=== PATIENT | male | born 1930 | race Caucasian/White ===

== ENCOUNTER 2017-01-23 17:49 | Emergency (ER) | payer MEDICARE ==
--- NOTE | 2017-01-23 17:58 | Emergency Department Record ---
History of Present Illness - General Chief Complaint: Laceration(s) Stated Complaint: LAC Source: Patient - History of Present Illness Initial Commments: Family reports that their demented family member tried to crawl into a trailer [place] their property, cutting his non-dominant left hand. He needs his tetanus updated. Multiple medical problems noted but not acute. - Related Data Hx Tetanus Toxoid Vaccination: No Home Medications Medication Instructions Recorded Confirmed Last Taken Metoprolol Tartrate [Metoprolol 25 mg PO DAILY 01/25/16 01/23/17 01/23/17 Tartrate] Ramipril [Ramipril] 1 tab PO DAILY 01/25/16 01/23/17 01/23/17 Aspirin [Aspirin EC] 81 mg PO DAILY 01/23/17 01/23/17 01/23/17 Donepezil HCl [Donepezil HCl] 10 mg PO ASDIR 01/23/17 01/23/17 01/23/17 Insulin Glargine,Hum.rec.anlog 16 units SQ DAILY 01/23/17 01/23/17 01/23/17 [Lantus] Levothyroxine Sodium 50 mcg PO DAILY 01/23/17 01/23/17 01/23/17 Mirtazapine [Mirtazapine] 7.5 mg PO ASDIR 01/23/17 01/23/17 01/23/17 Previous Rx's Medication Instructions Recorded Cephalexin [Keflex] 500 mg PO QID #39 cap 01/23/17 Allergies Allergy/AdvReac Type Severity Reaction Status Date / Time No Known Drug Allergies Allergy Verified 01/23/17 17:55 Review of Systems Reviewed: No additional complaints except as noted below Constitutional: Reports: As per HPI. Denies: Chills, Fever, Malaise, Night sweats, Weakness, Weight change Eyes: Reports: As per HPI. Denies: Eye discharge, Eye pain, Photophobia, Vision change ENT: Reports: As per HPI. Denies: Congestion, Dental pain, Ear pain, Epistaxis , Hearing loss, Throat pain Respiratory: Reports: As per HPI. Denies: Cough, Dyspnea, Hemoptysis, Stridor, Wheezes Cardiovascular: Reports: As per HPI. Denies: Arrhythmia, Chest pain, Dyspnea on exertion, Edema, Murmurs, Orthopnea, Palpitations, Paroxysmal nocturnal dyspnea, Rheumatic Fever, Syncope Endocrine: Reports: As per HPI. Denies: Fatigue, Heat or cold intolerance, Polydipsia, Polyuria Gastrointestinal: Reports: As per HPI. Denies: Abdominal pain, Constipation, Diarrhea, Hematemesis, Hematochezia, Melena, Nausea, Vomiting Genitourinary: Reports: As per HPI. Denies: Dysuria, Frequency, Hematuria, Incontinence, Retention, Testicular pain, Testicular mass, Urgency Musculoskeletal: Reports: As per HPI. Denies: Arthralgia, Back pain, Gout, Joint swelling, Myalgia, Neck pain Skin: Reports: As per HPI. Denies: Bruising, Change in color, Change in hair/ nails, Lesions, Pruritus, Rash Neurological: Reports: As per HPI. Denies: Abnormal gait, Confusion, Headache, Numbness, Paresthesias, Seizure, Tingling, Tremors, Vertigo, Weakness Psychiatric: Reports: As per HPI. Denies: Anxiety, Auditory hallucinations, Depression, Homicidal thoughts, Suicidal thoughts, Visual hallucinations Hematological/Lymphatic: Reports: As per HPI. Denies: Anemia, Blood Clots, Easy bleeding, Easy bruising, Swollen glands Past Medical History - SOCIAL HISTORY Smoking Status: Former smoker - RESPIRATORY Hx Respiratory Disorders: Yes Hx COPD: Yes - CARDIOVASCULAR Hx Cardio Disorders: Yes Hx Heart Attack: Yes - NEURO Hx Neuro Disorders: No - PSYCH Hx Psych Problems: No Physical Exam - General General Appearance: Alert, Oriented x3, Cooperative, No acute distress - Head Head exam: Normal inspection - Eye Eye exam: Normal appearance, PERRL Pupils: Normal accommodation - ENT ENT exam: Normal exam, Mucous membranes moist, Normal external ear exam, Normal orophraynx, TM's normal bilaterally Ear exam: Normal external inspection. negative: External canal tenderness Nasal Exam: Normal inspection. negative: Discharge, Sinus tenderness Mouth exam: Normal external inspection, Tongue normal Teeth exam: Normal inspection. negative: Dental caries Throat exam: Normal inspection. negative: Tonsillar erythema, Tonsillar exudate - Neck Neck exam: Normal inspection, Full ROM. negative: Tenderness - Respiratory Respiratory exam: Normal lung sounds bilaterally. negative: Respiratory distress - Cardiovascular Cardiovascular Exam: Regular rate, Normal rhythm, Normal heart sounds - GI/Abdominal GI/Abdominal exam: Soft, Normal bowel sounds. negative: Tenderness - Rectal Rectal exam: Deferred - exam: Deferred - Extremities Extremities exam: Normal inspection, Full ROM, Normal capillary refill. negative: Tenderness Image of Hand: 1 - 1.5 cm lac to flexor surface of PIP 4th digit, sub Q depth, no FB, no tendon 2 - degloving of DIP pinky finger, no FB sub Q depth no tendons 3 - several other tears of skin unable to be sutured. - Back Back exam: Reports: Normal inspection, Full ROM. Denies: Muscle spasm, Rash noted, Tenderness - Neurological Neurological exam: Alert, Normal gait, Oriented X3, Reflexes normal - Psychiatric Psychiatric exam: Normal affect, Normal mood - Skin Skin exam: Dry, Intact, Normal color, Warm Course - Reevaluation(s) Reevaluation #1: PROCEEDURE: 1% lido local to 5th digit lac and to 4th digit lac, 3 cc total; sterile prep and drape, #4 5.0 prolene simple interrupteds to 5th digit; #4 of same to 4th digit ring finger. 2-3 other laces unable to be sutured. No tendons , no FB noted. 01/23/17 18:59 Medical Decision Making - Management Options MDM Management: No Additional Work-up Planned (Suture removal 12-14 days.) - Lab Data Result diagrams: 01/23/17 18:25 01/23/17 18:25 Disposition Disposition: Discharge Clinical Impression: Laceration of hand Qualifiers: Encounter type: initial encounter Foreign body presence: without foreign body Laterality: left Qualified Code(s): S61.412A - Laceration without foreign body of left hand, initial encounter Disposition: Home, Self-Care Condition: (1) Good Instructions: Laceration (ED) Additional Instructions: Keep hand covered, clean and dry. Keflex as directed until gone. Tylenol as directed as needed for pain. Prescriptions: Cephalexin [Keflex] 500 mg PO QID #39 cap Forms: Patient Portal Access Quality - Quality Measures Quality Measures: N/A - Blood Pressure Screening Blood Pressure Classification: Normal BP Reading Systolic Measurement: 109 Diastolic Measurement: 65 Screening for High Blood Pressure: < Normal BP, F/U Not Required > [G8783] Normal BP Follow-up Interventions: No follow-up required
[2017-01-23] MEDS ORDERED: 0.9 % SODIUM CHLORIDE 1,000 ML BAG IV ONE (18:26)
[2017-01-23] MEDS ORDERED: ACETAMINOPHEN 325 MG TAB PO ONE (19:01)
[2017-01-23] MEDS ORDERED: CEPHALEXIN 500 MG CAPSULE PO STA (19:01)
[2017-01-23] MEDS ORDERED: Diph,Pert(Acell),Tet Vac 0.5 ML SYR IM ONE (19:02)
== END 2017-01-23 19:23 | disposition home or self-care (01) ==
LOC: ER 17:49
DX: S61.217A Laceration without foreign body of left little finger without damage to nail, initial encounter (principal); S61.215A Laceration without foreign body of left ring finger without damage to nail, initial encounter; W26.8XXA Contact with other sharp object(s), not elsewhere classified, initial encounter; Y92.029 Unspecified place in mobile home as the place of occurrence of the external cause; F03.90 Unspecified dementia, unspecified severity, without behavioral disturbance, psychotic disturbance, mood disturbance, and anxiety
CPT/HCPCS: 12001; 90715; 96372; 99283

== ENCOUNTER 2017-01-24 19:09 | Inpatient (IN) | payer MEDICARE ==
--- NOTE | 2017-01-24 19:21 | Emergency Department Record ---
History of Present Illness - General Stated Complaint: POSS STROKE Time Seen by Provider: 01/24/17 19:15 Source: Patient, Family Mode of Arrival: Wheelchair Limitations: No limitations - History of Present Illness Initial comments: 86 yo male presents to ED for possible stroke. Family reports unknown onset of symptoms, but daughter reports that she came home to find the patient 30 minutes ago covered in a warm blanket with a fever of 100.4, weak all over, and "delirious". Patient denies any focal weakness, denies cough, abdominal pain, headache, or urinary symptoms. Patient does report intermittent nausea and vomiting symptoms. Patient has a Past medical history significant for CAD s/p CABG. Consistency: Constant Improves with: None Worsens with: None Associated Symptoms: Fever/chills, Nausea/vomiting - [place] Coma Scale Eye Response: (4) Open spontaneously Motor Response: (6) Obeys commands Verbal Response: (5) Oriented [place] Total: 15 - Related Data Home Medications Medication Instructions Recorded Confirmed Last Taken Metoprolol Tartrate [Metoprolol 25 mg PO DAILY 01/25/16 01/23/17 01/23/17 Tartrate] Ramipril [Ramipril] 1 tab PO DAILY 01/25/16 01/23/17 01/23/17 Aspirin [Aspirin EC] 81 mg PO DAILY 01/23/17 01/23/17 01/23/17 Donepezil HCl [Donepezil HCl] 10 mg PO ASDIR 01/23/17 01/23/17 01/23/17 Insulin Glargine,Hum.rec.anlog 16 units SQ DAILY 01/23/17 01/23/17 01/23/17 [Lantus] Levothyroxine Sodium 50 mcg PO DAILY 01/23/17 01/23/17 01/23/17 Mirtazapine [Mirtazapine] 7.5 mg PO ASDIR 01/23/17 01/23/17 01/23/17 Previous Rx's Medication Instructions Recorded Cephalexin [Keflex] 500 mg PO QID #39 cap 01/23/17 Allergies Allergy/AdvReac Type Severity Reaction Status Date / Time No Known Drug Allergies Allergy Verified 01/23/17 17:55 Review of Systems Constitutional: Reports: Fever, Weakness (generalized). Denies: Chills, Malaise , Night sweats Eyes: Denies: Eye discharge, Eye pain ENT: Denies: Congestion, Ear pain, Epistaxis Respiratory: Denies: Cough, Dyspnea Cardiovascular: Denies: Dyspnea on exertion, Palpitations Endocrine: Denies: Fatigue, Heat or cold intolerance Gastrointestinal: Reports: Nausea, Vomiting. Denies: Abdominal pain Genitourinary: Denies: Incontinence, Retention Musculoskeletal: Denies: Arthralgia, Back pain, Gout, Joint swelling Skin: Denies: Bruising, Change in color Neurological: Denies: Abnormal gait, Confusion, Headache, Seizure Psychiatric: Denies: Anxiety Hematological/Lymphatic: Denies: Anemia, Blood Clots Past Medical History - SOCIAL HISTORY Smoking Status: Former smoker - RESPIRATORY Hx Respiratory Disorders: Yes Hx COPD: Yes - CARDIOVASCULAR Hx Cardio Disorders: Yes Hx Heart Attack: Yes - NEURO Hx Neuro Disorders: No - GI Hx GI Disorders: Yes Hx Reflux: Yes - Hx Genitourinary Disorders: No - ENDOCRINE Hx Endocrine Disorders: Yes Hx Thyroid Disease: Yes - MUSCULOSKELETAL Hx Musculoskeletal Disorders: No - PSYCH Hx Psych Problems: No - HEMATOLOGY/ONCOLOGY Hx Hematology/Oncology Disorders: No Physical Exam - General General Appearance: Alert, Oriented x3, Cooperative, No acute distress Limitations: No limitations - Head Head exam: Atraumatic, Normocephalic, Normal inspection Head exam detail: negative: Abrasion, Contusion, Aburto's sign, General tenderness, Hematoma, Laceration - Eye Eye exam: Normal appearance. negative: Conjunctival injection, Periorbital swelling, Periorbital tenderness, Scleral icterus - ENT Ear exam: negative: Auricular hematoma, Auricular trauma Nasal Exam: negative: Active bleeding, Discharge, Dried blood, Foreign body Mouth exam: negative: Drooling, Laceration, Muffled voice, Tongue elevation - Neck Neck exam: Normal inspection. negative: Meningismus, Tenderness - Respiratory Respiratory exam: Normal lung sounds bilaterally. negative: Respiratory distress, Rhonchi, Stridor, Wheezes - Cardiovascular Cardiovascular Exam: Regular rate, Normal rhythm, Normal heart sounds - GI/Abdominal GI/Abdominal exam: Soft. negative: Distended, Rebound, Rigid, Tenderness - Rectal Rectal exam: Deferred - exam: Deferred - Extremities Extremities exam: Normal inspection. negative: Calf tenderness, Pedal edema, Tenderness - Back Back exam: Denies: CVA tenderness (R), CVA tenderness (L) - Neurological Neurological exam: Alert, CN II-XII intact, Oriented X3. negative: Motor sensory deficit - Psychiatric Psychiatric exam: Normal affect, Normal mood - Skin Skin exam: Normal color. negative: Abrasion Type of lesion: negative: abrasion Course - Reevaluation(s) Reevaluation #1: 01/24/17 19:19 Patient seen and examined, patient has no signs for acute CVA on examination. Will obtain CT imaging of the head to exclude possible bleed as the patient reports nausea and vomiting, and initiate sepsis evaluation. Reevaluation #2: 01/24/17 19:27 EKG: NSR 70 IVCD, 1st degree block artifact present No acute ST-T wave changes are present Reevaluation #3: 01/24/17 21:16 Labs reviewed, WBC 9.3 with 88% Neutrophils. UA pending. Labs are otherwise grossly unremarkable for an acute process. CT Brain: Small vessel ischemic disease, nothing acute CXR: No acute pulmonary process. Reevaluation #4: 01/24/17 21:37 UA reviewed and appears grossly unremarkable for an acute process. Will admit for further evaluation, will hole antibiotics pending further evaluation for source. Medical Decision Making - Lab Data Result diagrams: 01/24/17 19:20 01/24/17 19:20 Disposition Disposition: Admit Clinical Impression: Fever and chills, Generalized weakness Disposition: Still a Patient at [facility] Decision to Admit: Admit from ER Decision to Admit Date: 01/24/17 Decision to Admit Time: 21:39 Condition: (2) Stable Time of Disposition: 21:39 Quality - Quality Measures Quality Measures: N/A - Blood Pressure Screening Blood Pressure Classification: Pre-Hypertensive BP Reading Systolic Measurement: 126 Diastolic Measurement: 78 Screening for High Blood Pressure: < Pre-Hypertensive BP, F/U Documented > [ G8950] Pre-Hypertensive Follow-up Interventions: Referral to alternative/primary care provider.
[2017-01-24] MEDS ORDERED: 0.9 % SODIUM CHLORIDE 1000ML 1,000 ML IV SCH (19:30)
[2017-01-24 19:35] LABS: HEMATOCRIT 44.2 % (42.0-52.0); HEMOGLOBIN 15.3 gm/dl (14.0-18.0); MEAN CELL VOLUME 88.2 fl (81-97); MEAN CORPUSCULAR HEMOGLOBIN 30.5 pg (27-33); MEAN CORPUSCULAR HGB CONC 34.6 g/dl (32-36); MEAN PLATELET VOLUME 9.4 fl (7.4-10.4); PLATELET COUNT 185 K/uL (130-400); RED BLOOD COUNT 5.01 M/uL (4.40-5.70); RED CELL DISTRIBUTION WIDTH 13.9 % (11.5-14.5); WHITE BLOOD COUNT W/O DIFF 9.3 K/uL (4.2-12.2)
[2017-01-24 19:48] LABS: LACTIC ACID 1.2 mmol/L (0.7-2.1)
[2017-01-24 19:49] LABS: BLOOD UREA NITROGEN 25 mg/dL (9-20); EST GLOMERULAR FILTRATION RATE > 60 ml/min; GLUCOSE,RANDOM 80 mg/dL (70-110)
[2017-01-24 19:50] LABS: ALB/GLOB RATIO 1.2 (1.1-1.8); ALBUMIN 4.3 gm/dL (3.5-5.0); ALKALINE PHOSPHATASE 72 U/L (38-126); ALT/SGPT 36 U/L (21-72); AST/SGOT 30 U/L (17-59); CREATINE PHOSPHOKINASE 78 U/L (55-170)
[2017-01-24 20:00] LABS: CKMB 1.3 ug/L (0-6)
[2017-01-24 20:01] LABS: TROPONIN I < 0.012 ng/mL (0.00-0.034)
[2017-01-24 21:32] LABS: URINE APPEARANCE CLEAR; URINE BILIRUBIN NEGATIVE (NEGATIVE); URINE BLOOD SMALL (NEGATIVE); URINE COLOR YELLOW; URINE GLUCOSE (UA) NEGATIVE (NEGATIVE); URINE KETONE NEGATIVE (NEGATIVE); URINE LEUKOCYTE ESTERASE NEGATIVE (NEGATIVE); URINE NITRITE NEGATIVE (NEGATIVE); URINE PROTEIN NEGATIVE (NEGATIVE); URINE UROBILINOGEN 0.2 E.U./dL (0.20 - 1.00)
[2017-01-24 21:33] LABS: URINE BACTERIA NONE SEEN; URINE RBC 0 - 2 (NONE SEEN); URINE WBC NONE SEEN (0-2/hpf)
[2017-01-24 21:34] LABS: URINE EPITHELIAL CELLS 0 - 2 (FEW)
[2017-01-24] MEDS ORDERED: MIRTAZAPINE 7.5 MG PO SCH (22:41)
[2017-01-24] MEDS ORDERED: ACETAMINOPHEN 500 MG TABLET PO PRN (22:41)
[2017-01-24] MEDS ORDERED: Non-Formulary MISC (Donepezil Hcl [Donepezil Hcl] 10 MG) PO SCH (22:41)
[2017-01-24] MEDS: CEPHALEXIN 500 MG CAPSULE PO SCH (23:29)
[2017-01-25] MEDS: LEVOTHYROXINE SODIUM 50 MCG TABLET PO SCH (05:58)
--- NOTE | 2017-01-25 07:14 | CT SCAN REPORT ---
EXAM: CT OF THE BRAIN WITHOUT CONTRAST HISTORY: MENTAL STATUS CHANGE. TECHNIQUE: Sequential axial images were obtained from the foramen magnum to the vertex without contrast administration. FINDINGS: There is age appropriate cortical atrophy. There is periventricular small vessel ischemic change. There is intracranial vascular calcification. No large territorial infarct, hemorrhage, mass effect, or midline shift. No extraaxial fluid collection. The orbits appear normal. There is minimal ethmoid and sphenoid sinus disease. The mastoid air cells appear normal. IMPRESSION: 1. 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 2. INTRACRANIAL VASCULAR CALCIFICATION. 3. SPHENOID AND ETHMOID SINUS DISEASE. JOB NUMBER: [id number] MTDD
[2017-01-25] MEDS: 0.9 % SODIUM CHLORIDE 1000ML 1,000 ML IV PRN ×2 (08:14→20:38)
[2017-01-25] MEDS: LEVEMIR FLEXTOUCH 100 UNIT/ML INSULIN PEN SQ SCH (08:23)
--- NOTE | 2017-01-25 09:21 | RADIOLOGY REPORT ---
EXAM: CHEST - SINGLE VIEW HISTORY: MENTAL STATUS CHANGE. TECHNIQUE: A frontal view of the chest was performed. FINDINGS: Postop sternotomy wires. The heart size is normal. No pulmonary vascular congestion. No infiltrate or pleural effusion. There is an osteochondroma in the right proximal humerus. IMPRESSION: 1. NO ACUTE PULMONARY DISEASE PROCESS. 2. OSTEOCHONDROMA RIGHT PROXIMAL HUMERUS. JOB NUMBER: [id number] MTDD
[2017-01-25] MEDS: ASPIRIN 81 MG TABEC PO SCH (10:53)
[2017-01-25] MEDS: CEPHALEXIN 500 MG CAPSULE PO SCH ×4 (10:53→23:12)
[2017-01-25] MEDS: DONEPEZIL HCL 5 MG TABLET PO SCH (10:53)
[2017-01-25] MEDS: RAMIPRIL 2.5 MG CAPSULE PO SCH (10:53)
[2017-01-25] MEDS: METOPROLOL TART 25 MG TABLET PO SCH (10:53)
--- NOTE | 2017-01-25 12:56 | History & Physical ---
History of Present Illness - Date of Service Date of Service for History & Physical: 01/25/17 - History of Present Illness Admitting Diagnosis: Fever. Altered mental status. Generalized weakness History of Present Illness: 86 y/o demented male with possible stroke symptoms admitted for acute mental status changes. Past medical history includes former smoker, COPD, [place] s/p CABG, GERD, hypothyroidism. Prior to admit per daughter report had observed him covered with a warm blanket , fever 100.4, generalized weakness and delirious. The day prior on 01/23 was climbing into their travel trailer and sustained lacerations to his left hand as he tried to catch himself falling off the stairs and had been brought to [facility] ED for sutures and started on Keflex. Denied cough, abdominal pain, urinary symptoms, headache, visual changes. Did report mild nausea after beginning Keflex. reports his usual baseline in independent function with needing constant verbal cues for eating and ADLs. Usually is fidgety, calls out. has notices an unusual breathing abdominal breathing pattern and quick respirations for the past 2 months. Has been seen by PCP for this with no formal diagnosis given. While in the ED no focal weakness or overt signs of CVA upon exam, CT head negative for acute process, CXR negative for acute process, EKG: NSR, IVCD, 1st degree heart block, no acute ST-T wave changes, WBC nl with 88% neutrophils, U/ A negative. Antibiotics on hold until blood cultures back 01/25/17- resting in bed, fidgety. Intermittent yelling out of garbled speech. Afebrile. Per report he looks to be at his baseline. Continues with chest- abdominal breathing pattern. RR around 30, in no obvious distress. PCP: Dr Joni Cardona Geriatric neurologist- unable to recall name Travel Screening - Travel/Exposure Within Last 30 Days Have you traveled within the last 30 days?: No Location Detail:: unknown - Travel/Exposure Within Last Year Have you traveled outside the [place] in the last year?: No Location Detail:: unknown - Additonal Travel Details Have you been exposed to anyone with a communicable illness?: No Exposure Details:: unknown - Travel Symptoms Symptom Screening: None Review of Systems Constitutional: Reports: Fever, Weakness (generalized). Denies: Chills, Malaise , Night sweats Eyes: Denies: Eye discharge, Eye pain ENT: Denies: Congestion, Ear pain, Epistaxis Respiratory: Denies: Cough, Dyspnea Cardiovascular: Denies: Dyspnea on exertion, Palpitations Endocrine: Denies: Fatigue, Heat or cold intolerance Gastrointestinal: Reports: Nausea, Vomiting. Denies: Abdominal pain Genitourinary: Denies: Incontinence, Retention Musculoskeletal: Denies: Arthralgia, Back pain, Gout, Joint swelling Skin: Denies: Bruising, Change in color Neurological: Denies: Abnormal gait, Confusion, Headache, Seizure Psychiatric: Denies: Anxiety Hematological/Lymphatic: Denies: Anemia, Blood Clots Past Medical History - SOCIAL HISTORY Smoking Status: Former smoker - RESPIRATORY Hx Respiratory Disorders: Yes Hx COPD: Yes - CARDIOVASCULAR Hx Cardio Disorders: Yes Hx Heart Attack: Yes - NEURO Hx Neuro Disorders: No - GI Hx GI Disorders: Yes Hx Reflux: Yes - Hx Genitourinary Disorders: No - ENDOCRINE Hx Endocrine Disorders: Yes Hx Thyroid Disease: Yes - MUSCULOSKELETAL Hx Musculoskeletal Disorders: No - PSYCH Hx Psych Problems: No - HEMATOLOGY/ONCOLOGY Hx Hematology/Oncology Disorders: No Family Medical History Any Significant Family History?: No Hx Cancer: Mother, Brother/Sister H&P Meds/Allergies - Allergies Allergies: Allergies Allergy/AdvReac Type Severity Reaction Status Date / Time No Known Drug Allergies Allergy Verified 01/23/17 17:55 - Home Medications Home Medications Medication Instructions Recorded Confirmed Last Taken Metoprolol Tartrate [Metoprolol 25 mg PO DAILY 01/25/16 01/23/17 01/23/17 Tartrate] Ramipril [Ramipril] 1 tab PO DAILY 01/25/16 01/23/17 01/23/17 Aspirin [Aspirin EC] 81 mg PO DAILY 01/23/17 01/23/17 01/23/17 Donepezil HCl [Donepezil HCl] 10 mg PO ASDIR 01/23/17 01/23/17 01/23/17 Insulin Glargine,Hum.rec.anlog 16 units SQ DAILY 01/23/17 01/23/17 01/23/17 [Lantus] Levothyroxine Sodium 50 mcg PO DAILY 01/23/17 01/23/17 01/23/17 Mirtazapine [Mirtazapine] 7.5 mg PO ASDIR 01/23/17 01/23/1701/23/17 Previous Rx's Medication Instructions Recorded Cephalexin [Keflex] 500 mg PO QID #39 cap 01/23/17 - Active Medications Active Medications: Current Medications Acetaminophen (Tylenol 500mg Tab) 1,000 mg PO Q6H PRN PRN Reason: PAIN/TEMP Aspirin (Ecotrin (Ec)) 81 mg PO DAILY [facility] Last Admin: 01/25/17 10:53 Dose: 81 mg Cephalexin HCl (Keflex) 500 mg PO QID [facility] Stop: 02/03/17 22:42 Last Admin: 01/25/17 10:53 Dose: 500 mg Donepezil HCl (Aricept) 10 mg PO DAILY [facility] Last Admin: 01/25/17 10:53 Dose: 10 mg Sodium Chloride () 1,000 mls @ 100 mls/hr IV .Q10H PRN PRN Reason: LARGE VOLUME IV Last Admin: 01/25/17 08:14 Dose: 100 mls/hr Insulin Detemir (Levemir Flextouch) 16 unit SQ DAILYAC [facility] Last Admin: 01/25/17 08:23 Dose: 16 unit Levothyroxine Sodium (Synthroid) 50 mcg PO [id number] [facility] Last Admin: 01/25/17 05:58 Dose: 50 mcg Metoprolol Tartrate (Lopressor) 25 mg PO DAILY [facility] Last Admin: 01/25/17 10:53 Dose: 25 mg Mirtazapine (Remeron) 7.5 mg PO QHS [facility] Ramipril (Altace) 2.5 mg PO DAILY [facility] Last Admin: 01/25/17 10:53 Dose: 2.5 mg Physical Exam - Vital Signs Vital Signs: Vital Signs - Last 24 Hrs Temp Pulse Resp BP Pulse Ox 01/25/17 09:27 98.8 F 74 32 H 114/60 95 01/25/17 09:00 32 H 01/25/17 04:31 98.8 F 77 24 139/68 98 01/24/17 23:18 74 18 01/24/17 22:30 98.2 F 74 24 126/78 97 - General General Appearance: Alert (oriented x 1), Cooperative, No acute distress Limitations: No limitations - Head Head exam: Atraumatic, Normocephalic, Normal inspection Head exam detail: negative: Abrasion, Contusion, Aburto's sign, General tenderness, Hematoma, Laceration - Eye Eye exam: Normal appearance, PERRL, EOMI. negative: Conjunctival injection, Periorbital swelling, Periorbital tenderness, Scleral icterus - ENT Ear exam: negative: Auricular hematoma, Auricular trauma Nasal Exam: negative: Active bleeding, Discharge, Dried blood, Foreign body Mouth exam: negative: Drooling, Laceration, Muffled voice, Tongue elevation - Neck Neck exam: Normal inspection. negative: Meningismus, Tenderness - Respiratory Respiratory exam: Normal lung sounds bilaterally. negative: Respiratory distress, Rhonchi, Stridor, Wheezes - Cardiovascular Cardiovascular Exam: Regular rate, Normal rhythm, Normal heart sounds Peripheral Pulses: 2+: Dorsalis Pedis (R), Dorsalis Pedis (L) - GI/Abdominal GI/Abdominal exam: Soft, Other (observation of respirations reveals extensive engagement of abdominal muscles during expiration, no accessory muscle use). negative: Distended, Rebound, Rigid, Tenderness - Rectal Rectal exam: Deferred - exam: Deferred - Extremities Extremities exam: Normal inspection. negative: Calf tenderness, Pedal edema, Tenderness - Back Back exam: Denies: CVA tenderness (R), CVA tenderness (L) - Neurological Neurological exam: Alert, CN II-XII intact, Oriented X3. negative: Motor sensory deficit - Psychiatric Psychiatric exam: Normal affect, Normal mood - Skin Skin exam: Normal color. negative: Abrasion Type of lesion: Laceration (sutured lac to flexor surface PIP 4th digit left, DIP left pinky degloving, no FB, no evidence infection). negative: abrasion Results - Labs Result Diagrams: 01/24/17 19:20 01/24/17 19:20 Labs Last 24 Hours: Laboratory Results - last 24 hr 01/25/17 01/25/17 07:03 11:30 POC Glucose 75 83 - Imaging and Cardiology Chest x-ray Status: Report reviewed (no acute process) CT scan - head Status: Report reviewed (small vessel ischemia, no acute process) VTE H&P Assessment - Risk for VTE Risk for VTE: Yes Risk Level: Moderate Risk Assessment Date: 01/25/17 Risk Assessment Time: 09:00 VTE Orders Placed or Will Be Placed: Yes Plan - Inpatient Certification Inpatient Certification: 01/25/17 16:50 Admit to inpatient care: Based on my medical assessment, after consideration of patient's risk factors (age, co-morbidities and patient presenting symptoms and acuity), I expect that this patient will remain in the hospital greater than or equal to two midnights and that the services needed warrant inpatient care because: Patient Risk Factors: [mental status change, advanced age, FUO, dementia] Estimated length of stay: [48-72 hours] The patient may reasonably be expected to be discharged or transferred to a hospital within 96 hours after admission to [facility]. Services needed: [blood cultures, lab monitoring ] Post hospital care (if known): [] I certify that my determination is in accordance with my understanding of Medicare requirements for reasonable and necessary inpatient services. - Detailed Diagnosis and Plan (1) Fever and chills Current Visit: Yes Status: Acute Base Code: R50.9 - FEVER, UNSPECIFIED Comment: 01/25/17- acute onset fever, change in usual congition, shivering. Recent laceration to left hand and started on Keflex. ER work up reveals unclear etiology of fever, initial work up negative. Lactic acid normal, liver function normal. qSOFA score 2, has baseline dementia with a questionable change in usual mentation as reported by daughter vs. report of no change. Remains afebrile, vital signs stable, eating well, up and walking independently , is impulsive. Septic process unlikely but will be ruled out - BC x 3 pending - urine culture pending - VS q 4 hours (2) Generalized weakness Current Visit: Yes Status: Acute Base Code: R53.1 - WEAKNESS Comment: 01/25- acute onset fever, change in usual congition, shivering, weakness. Recent laceration to left hand and started on Keflex. ER work up reveals unclear etiology of fever, initial work up negative. qSOFA score 2, baseline dementia with questionable change in usual mentation as report from daugher vs. . Remains afebrile, eating well, up and walking independently, is impulsive. - BC x 3 pending - urine culture pending - VS q 4 hours (3) Tachypnea Current Visit: Yes Status: Acute Base Code: R06.82 - TACHYPNEA, NOT ELSEWHERE CLASSIFIED Comment: 01/25/17- abdominal-chest breathing with tachypnea has been ongoing for 2 months. In no obvious distress. No accessory muscle involvement. Is able to have normal respiratory excursion upon cue. Visually engaging core/abdominal muscles with exhalation. - ABG to check acid/base balance - renal function unremarkable - obtain CTA chest to rule out PE vs. other cause - nursing to check RR during sleep (4) Laceration of hand Current Visit: No Status: Acute Qualifiers: Encounter type: initial encounter Foreign body presence: without foreign body Laterality: left Qualified Code(s): S61.412A - Laceration without foreign body of left hand, initial encounter Base Code: S61.419A - LACERATION WITHOUT FOREIGN BODY OF UNSP HAND, INIT ENCNTR Comment: 01/25/17- laceration repair 01/23/17. Wound edges well approximated, sutures in place, no evidence infection. (5) Full code status Current Visit: Yes Status: Acute Base Code: Z78.9 - OTHER SPECIFIED HEALTH STATUS Comment: 01/25/17- will remain full code during this hospitalization (6) DVT prophylaxis Current Visit: Yes Status: Acute Base Code: [id number] - Comment: 01/25/17- nursing to encourage frequent ambulation. Fall risk due to advanced age, poor impulse control, dementia
[2017-01-25 20:02] LABS: ARTERIAL BLD GAS O2 SATURATION 92.2 % (95-98); ARTERIAL BLOOD GAS BASE EXCESS -3.5 mmol/L (-2 - 3); ARTERIAL BLOOD GAS HCO3 19.5 mmol/L (18-23); ARTERIAL BLOOD GAS PCO2 30.1 mmHg (35-48); ARTERIAL BLOOD GAS pH 7.43 (7.35-7.45); CARBOXYHEMOGLOBIN 1.5 % (0-1.5); O2 HEMOGLOBIN 91.3 % vol (94-99); TOTAL HEMOGLOBIN 12.3 g/dl (14-18)
[2017-01-25 20:03] LABS: ALLEN TEST PASS
[2017-01-25] MEDS ORDERED: MIRTAZAPINE 15 MG TABLET PO SCH (22:00)
[2017-01-26] MEDS: LEVOTHYROXINE SODIUM 50 MCG TABLET PO SCH (06:07)
[2017-01-26 06:42] LABS: BASO % 1.6 % (0-6); GRAN % 65.8 % (47-80); HEMATOCRIT 41.8 % (42.0-52.0); HEMOGLOBIN 14.2 gm/dl (14.0-18.0); LYMPH % 17.5 % (16-45); MEAN CELL VOLUME 89.3 fl (81-97); MEAN CORPUSCULAR HEMOGLOBIN 30.3 pg (27-33); MEAN PLATELET VOLUME 9.2 fl (7.4-10.4); MONO % 11.1 % (0-9); PLATELET COUNT 134 K/uL (130-400); RED BLOOD COUNT 4.68 M/uL (4.40-5.70); RED CELL DISTRIBUTION WIDTH 14.1 % (11.5-14.5); WHITE BLOOD COUNT W/O DIFF 5.8 K/uL (4.2-12.2)
[2017-01-26 06:58] LABS: ALB/GLOB RATIO 1.1 (1.1-1.8); ALBUMIN 3.6 gm/dL (3.5-5.0); ALKALINE PHOSPHATASE 70 U/L (38-126); ALT/SGPT 35 U/L (21-72); AST/SGOT 30 U/L (17-59); BLOOD UREA NITROGEN 17 mg/dL (9-20); CREATININE 0.8 mg/dL (0.66-1.25); EST GLOMERULAR FILTRATION RATE > 60 ml/min; GLUCOSE,RANDOM 85 mg/dL (70-110); TOTAL PROTEIN 6.9 gm/dL (6.3-8.2)
--- NOTE | 2017-01-26 07:12 | CT ANGIOGRAM REPORT ---
EXAM: CTA OF THE CHEST WITH CONTRAST HISTORY: DIFFICULTY BREATHING, TACHYPNEA. TECHNIQUE: CTA of the chest was performed after intravenous administration of 80 ml of Omnipaque 350 contrast material. Sagittal and coronal MIP images were performed on an independent workstation. FINDINGS: There is no mass or filling defect to suggest pulmonary embolism. There is cardiomegaly without pericardial effusion. There is coronary artery vascular calcification. There is mild dilatation of the esophagus. There is underlying interstitial lung disease. No superimposed infiltrate or pleural effusion. IMPRESSION: 1. NO CTA FINDINGS SUGGESTIVE OF PULMONARY EMBOLISM. 2. MILD DILATATION OF THE ESOPHAGUS. 3. CHRONIC UNDERLYING INTERSTITIAL LUNG DISEASE. 4. CARDIOMEGALY WITH CORONARY ARTERY VASCULAR CALCIFICATION. JOB NUMBER: [id number] MTDD
[2017-01-26] MEDS: 0.9 % SODIUM CHLORIDE 1000ML 1,000 ML IV PRN (09:17)
[2017-01-26] MEDS: LEVEMIR FLEXTOUCH 100 UNIT/ML INSULIN PEN SQ SCH (10:05)
[2017-01-26] MEDS: RAMIPRIL 2.5 MG CAPSULE PO SCH ×2 (10:08→10:19)
[2017-01-26] MEDS: DONEPEZIL HCL 5 MG TABLET PO SCH (10:09)
[2017-01-26] MEDS: CEPHALEXIN 500 MG CAPSULE PO SCH (10:10)
[2017-01-26] MEDS: METOPROLOL TART 25 MG TABLET PO SCH (10:10)
[2017-01-26] MEDS: ASPIRIN 81 MG TABEC PO SCH (10:10)
--- NOTE | 2017-01-26 12:14 | Discharge Summary ---
Providers Discharge Summary Date: 01/26/17 Date of admission: 01/25/17 14:23 Expected Date of Discharge: 01/26/17 Attending physician: SELVIN GUADALUPE Primary care physician: JONI PUTNAM D.O. Physical Exam - Vital Signs Vital Signs: Vital Signs - Last 24 Hrs Temp Pulse Pulse Resp BP BP Pulse Ox 01/26/17 09:29 98.7 F 102/65 01/26/17 09:08 83 16 102/65 96 01/26/17 06:09 64 24 96 01/26/17 06:00 98.7 F 69 24 135/66 96 01/25/17 22:48 98.2 F 54 L 24 135/62 97 01/25/17 20:02 56 L 24 95 01/25/17 20:00 54 L 24 85 L 01/25/17 18:39 97.7 F 66 24 95/48 - General General Appearance: Alert (oriented x 1), Cooperative, No acute distress Limitations: No limitations - Head Head exam: Atraumatic, Normocephalic, Normal inspection Head exam detail: negative: Abrasion, Contusion, Aburto's sign, General tenderness, Hematoma, Laceration - Eye Eye exam: Normal appearance, PERRL, EOMI. negative: Conjunctival injection, Periorbital swelling, Periorbital tenderness, Scleral icterus - ENT Ear exam: negative: Auricular hematoma, Auricular trauma Nasal Exam: negative: Active bleeding, Discharge, Dried blood, Foreign body Mouth exam: negative: Drooling, Laceration, Muffled voice, Tongue elevation - Neck Neck exam: Normal inspection. negative: Meningismus, Tenderness - Respiratory Respiratory exam: Normal lung sounds bilaterally. negative: Respiratory distress, Rhonchi, Stridor, Wheezes - Cardiovascular Cardiovascular Exam: Regular rate, Normal rhythm, Normal heart sounds Peripheral Pulses: 2+: Dorsalis Pedis (R), Dorsalis Pedis (L) - GI/Abdominal GI/Abdominal exam: Soft, Other (observation of respirations reveals extensive engagement of abdominal muscles during expiration, no accessory muscle use). negative: Distended, Rebound, Rigid, Tenderness - Rectal Rectal exam: Deferred - exam: Deferred - Extremities Extremities exam: Normal inspection. negative: Calf tenderness, Pedal edema, Tenderness - Back Back exam: Denies: CVA tenderness (R), CVA tenderness (L) - Neurological Neurological exam: Alert, CN II-XII intact, Oriented X3. negative: Motor sensory deficit - Psychiatric Psychiatric exam: Normal affect, Normal mood - Skin Skin exam: Normal color. negative: Abrasion Type of lesion: Laceration (sutured lac to flexor surface PIP 4th digit left, DIP left pinky degloving, no FB, no evidence infection). negative: abrasion Hospitalization - Hospitalization Admission Diagnosis: Fever. Altered mental status. Generalized weakness - Problem List/Discharge Diagnosis (1) Fever and chills Current Visit: Yes Status: Acute Base Code: R50.9 - FEVER, UNSPECIFIED Comment: 01/26/17- acute onset fever, change in usual congition, shivering. Recent laceration to left hand and started on Keflex. ER work up reveals unclear etiology of fever, initial work up negative. Lactic acid normal, liver function normal. qSOFA score 2, has baseline dementia with a questionable change in usual mentation as reported by daughter vs. report of no change. Remains afebrile, vital signs stable, eating well, up and walking independently , is impulsive. Septic process unlikely but will be ruled out - has remained afebrile - WBC normal - BC x 3 pending- preliminary no growth to date - urine culture pending - will continue Keflex as ordered originally by ED 01/23 for full course - follow up PCP or [facility] 01/31-02/02 for suture removal - follow up PCP 1-2 weeks for hyperventilation, tachypnea (2) Generalized weakness Current Visit: Yes Status: Acute Base Code: R53.1 - WEAKNESS Comment: 01/26- acute onset fever, change in usual congition, shivering. Recent laceration to left hand and started on Keflex. ER work up reveals unclear etiology of fever , initial work up negative. Lactic acid normal, liver function normal. qSOFA score 2, has baseline dementia with a questionable change in usual mentation as reported by daughter vs. report of no change. Remains afebrile, vital signs stable, eating well, up and walking independently, is impulsive. Septic process unlikely but will be ruled out - has remained afebrile - WBC normal - BC x 3 pending- preliminary no growth to date - urine culture pending - will continue Keflex as ordered originally by ED 01/23 for full course - follow up PCP or [facility] 01/31-02/02 for suture removal - follow up PCP 1-2 weeks for hyperventilation, tachypnea (3) Tachypnea Current Visit: Yes Status: Acute Base Code: R06.82 - TACHYPNEA, NOT ELSEWHERE CLASSIFIED Comment: 01/26/17- abdominal-chest breathing with tachypnea has been ongoing for 2 months. In no obvious distress. No accessory muscle involvement. Is able to have normal respiratory excursion upon cue. Visually engaging core/abdominal muscles with exhalation. Is observed breathing in a normal respiratory pattern today. RR 24 through the night - ABG pCO2 30.1, pO2 59, HCO3 19.5, pH 7.43- compensated respiratory alkalosis, adivised this may not always remain the case should he continue to hyperventilate - renal function unremarkable - CTA chest normal - respiratory pattern NOT consistent with diaphragmatic paralysis - follow up with PCP 1-2 weeks (4) Laceration of hand Current Visit: No Status: Acute Discharge Diagnosis: Encounter type: initial encounter Foreign body presence: without foreign body Laterality: left Qualified Code(s): S61.412A - Laceration without foreign body of left hand, initial encounter Base Code: S61.419A - LACERATION WITHOUT FOREIGN BODY OF UNSP HAND, INIT ENCNTR Comment: 01/26/17- laceration repair 01/23/17. Wound edges well approximated, sutures in place, no evidence infection. - suture removal by PCP or [facility] 01/31-02/02 - keep wound dry and clean (5) Full code status Current Visit: Yes Status: Acute Base Code: Z78.9 - OTHER SPECIFIED HEALTH STATUS Comment: 01/26/17- will remain full code during this hospitalization (6) DVT prophylaxis Current Visit: Yes Status: Acute Base Code: [id number] - Comment: 01/26/17- nursing to encourage frequent ambulation. Fall risk due to advanced age, poor impulse control, dementia - Hospitalization Course Disposition: Home Health Service Hospital Course: 86 y/o demented male with possible stroke symptoms admitted for acute mental status changes. Past medical history includes former smoker, COPD, [place] s/p CABG, GERD, hypothyroidism. Prior to admit per daughter report had observed him covered with a warm blanket , fever 100.4, generalized weakness and delirious. The day prior on 01/23 was climbing into their travel trailer and sustained lacerations to his left hand as he tried to catch himself falling off the stairs and had been brought to [facility] ED for sutures and started on Keflex. Denied cough, abdominal pain, urinary symptoms, headache, visual changes. Did report mild nausea after beginning Keflex. reports his usual baseline in independent function with needing constant verbal cues for eating and ADLs. Usually is fidgety, calls out. has notices an unusual breathing abdominal breathing pattern and quick respirations for the past 2 months. Has been seen by PCP for this with no formal diagnosis given. While in the ED no focal weakness or overt signs of CVA upon exam, CT head negative for acute process, CXR negative for acute process, EKG: NSR, IVCD, 1st degree heart block, no acute ST-T wave changes, WBC nl with 88% neutrophils, U/ A negative. Antibiotics on hold until blood cultures back 01/25/17- resting in bed, fidgety. Intermittent yelling out of garbled speech. Afebrile. Per report he looks to be at his baseline. Continues with chest- abdominal breathing pattern. RR around 30, in no obvious distress. PCP: Dr Joni Putnam Geriatric neurologist- unable to recall name Procedures: Imaging and X-Rays 01/25/17 16:48 CHEST CTA w contrast [CTA] Stat Abnormal Labs: Abnormal Lab Results 01/25/17 01/25/17 01/26/17 Range/Units 17:30 19:45 06:35 Hct (42.0-52.0) % Monocytes % (0-9) % pCO2 30.1 L (35-48) mmHg pO2 59.0 L (83-108) mmHg Oxyhemoglobin 91.3 L (94-99) % vol ABG O2 Saturation 92.2 L (95-98) % ABG Base Excess -3.5 L (-2 - 3) mmol/L Total Hemoglobin 12.3 L (14-18) g/dl Actual Respiration Rate 24.0 H (10-18) /MIN Carbon Dioxide 21.0 L (22-30) mmol/L POC Glucose 118 H (70-110) mg/dL Calcium 8.1 L (8.5-10.1) mg/dL 01/26/17 01/26/17 Range/Units 06:35 09:21 Hct 41.8 L (42.0-52.0) % Monocytes % 11.1 H (0-9) % pCO2 (35-48) mmHg pO2 (83-108) mmHg Oxyhemoglobin (94-99) % vol ABG O2 Saturation (95-98) % ABG Base Excess (-2 - 3) mmol/L Total Hemoglobin (14-18) g/dl Actual Respiration Rate (10-18) /MIN Carbon Dioxide (22-30) mmol/L POC Glucose 150 H (70-110) mg/dL Calcium (8.5-10.1) mg/dL Condition at Discharge: (2) Stable Discharge Medications - Discharge Medications Home Medications: Ambulatory Orders Metoprolol Tartrate 25 mg PO DAILY 01/25/16 [Last Taken 01/23/17] Ramipril 1 tab PO DAILY 01/25/16 [Last Taken 01/23/17] Aspirin [Aspirin EC] 81 mg PO DAILY 01/23/17 [Last Taken 01/23/17] Cephalexin [Keflex] 500 mg PO QID #39 cap 01/23/17 [Last Taken Unknown] Donepezil HCl 10 mg PO ASDIR 01/23/17 [Last Taken 01/23/17] Insulin Glargine,Hum.rec.anlog [Lantus] 16 units SQ DAILY 01/23/17 [Last Taken 01/23/17] Levothyroxine Sodium 50 mcg PO DAILY 01/23/17 [Last Taken 01/23/17] Mirtazapine 7.5 mg PO ASDIR 01/23/17 [Last Taken 01/23/17] Acetaminophen [Tylenol 500Mg Tab] 1,000 mg PO Q6H PRN 01/26/17 [Last Taken Unknown] Donepezil HCl [Aricept] 10 mg PO DAILY 01/26/17 [Last Taken Unknown] Mirtazapine [Remeron] 7.5 mg PO QHS 01/26/17 [Last Taken Unknown] Discharge Plan - Discharge Instructions Activity at Discharge: Increase Activity as Tolerated Diet at Discharge: Diabetic Diet Additional Instructions: - Return to your PCP or [facility] for stitches removal between 01/31/17 - 02/02/17 - follow up with PCP for hyperventilation - Finish Keflex as prescribed by the ER when stitches were placed 01/23/17
== END 2017-01-26 12:30 | disposition home health service (06) | DRG 864 ==
LOC: ER 19:09 → MEDSURG 22:21 → OBSVTOIN 01-25 14:23
PROVIDERS: ADMIT Family Medicine; ATTEND Family Medicine
DX: R50.9 Fever, unspecified (principal); J44.9 Chronic obstructive pulmonary disease, unspecified; I25.810 Atherosclerosis of coronary artery bypass graft(s) without angina pectoris; R53.1 Weakness; F03.90 Unspecified dementia, unspecified severity, without behavioral disturbance, psychotic disturbance, mood disturbance, and anxiety; R06.82 Tachypnea, not elsewhere classified; Z78.9 Other specified health status; E11.9 Type 2 diabetes mellitus without complications; Z79.4 Long term (current) use of insulin; E03.9 Hypothyroidism, unspecified
CPT/HCPCS: 99285 ×2; 82550; 83605; 82553; 84484; 80053; 36416 ×2; 81001; 82948 ×2; 87040 ×2; 85027; 71010; 70450; 93005; 93010; G0378 ×2; J1815; 36600; 71275; 82375; 82803; 84443; 85025; 94760; 99223; 99239